=== PATIENT | male | born 1960 | race Caucasian/White ===

== ENCOUNTER 2016-04-28 11:44 | Inpatient (IN) | payer BC, OTHER ==
[~2016-04-28] VITALS: Ht 170.2 cm; Wt 85.9 kg
[2016-04-28] VITALS (22 sets, daily range): BP systolic 96–135; BP diastolic 54–110
[2016-04-28] MEDS ORDERED: IODIXANOL 320MG/ML 100ML BTL IV ONE (11:55)
[2016-04-28] MEDS ORDERED: LIDOCAINE 2%HCL (LOCAL ANESTH.) INJ 20ML MDV ONE (11:56)
[2016-04-28] MEDS ORDERED: ONDANSETRON HCL 4 MG/2 ML VIAL IV ONE (12:00)
[2016-04-28] MEDS ORDERED: HEPARIN 1,000 UNITS/ml 1ML VIAL IV ONE (12:00)
[2016-04-28] MEDS ORDERED: MORPHINE SULFATE 4 MG/ML SYRG IV ONE (12:00)
[2016-04-28] MEDS ORDERED: NITROGLYCERIN 0.4 MG SL TAB SL PRN ×2 (12:00→14:00)
[2016-04-28] MEDS ORDERED: ASPirin 81 mg TAB PO ONE (12:00)
[2016-04-28 12:21] LABS: Basophils # (auto) 0.1 uL; Basophils % (auto) 0.7 % (0.0-2.0); DEFINITIVE VIEW TRANSMISSION; Eosinophils # (auto) 0 uL; Eosinophils % (auto) 0.1 % (0.0-7.0); Hematocrit 52.5 % (41.0-53.0); Hemoglobin 17.3 g/dL (13.5-17.5); Lymphocytes # (auto) 2.1 uL; Lymphocytes % (auto) 11.2 % (10.0-50.0); Mean Corpuscular Hemoglobin 30.4 pg (28.0-32.0); Mean Corpuscular Volume 92.3 fL (80.0-100.0); Mean Platelet Volume 8.4 fL (7.4-10.4); Monocytes # (auto) 1.8 uL; Monocytes % (auto) 9.9 % (0.0-12.0); Neutrophils # (auto) 14.3 uL; Neutrophils % (auto) 78.1 % (37.0-80.0); Platelet Count (auto) 290 10^3/uL (140-450); Red Cell Distribution Width 14.5 % (11.6-16.0); White Blood Cell 18.3 10^3/uL (4.4-10.8)
[2016-04-28 12:27] LABS: Partial Thromboplastin Time 31.4 sec (22.64-33.71)
[2016-04-28 12:32] LABS: INR 1.29 (0.9-1.15); Prothrombin Time 13.3 sec (9.37-12.3)
[2016-04-28 12:36] LABS: Albumin 3.6 g/dL (3.4-5.0); BUN/Creatinine Ratio 7.1; Bilirubin, Total 1.1 mg/dL (0.2-1.0); Calcium 9.1 mg/dL (8.5-10.1); Magnesium 1.9 mg/dL (1.6-2.6); Potassium 4.2 mmol/L (3.5-5.1); Total Protein 7.8 g/dL (6.4-8.2)
[2016-04-28] MEDS ORDERED: ALBUTEROL SULF 2.5 MG/0.5ML(0.5%) NEB SOLN NEB PRN (14:00)
[2016-04-28] MEDS ORDERED: LORazepam 0.5 MG TAB PO PRN (14:00)
[2016-04-28] MEDS ORDERED: MORPHINE SULF INJ 2 MG/ML SYRINGE 1ML IV PRN ×2 (14:00)
[2016-04-28] MEDS ORDERED: PROMETHAZINE HCL 25 MG/ML 1ML IV PRN (14:00)
[2016-04-28] MEDS ORDERED: TEMAZEPAM 15 MG CAP PO PRN (14:00)
[2016-04-28] MEDS ORDERED: LACTULOSE 20Gm/30ML SOLN PO PRN (14:00)
[2016-04-28] MEDS ORDERED: ACETAMINOPHEN 500 MG TAB PO PRN (14:00)
[2016-04-28] MEDS ORDERED: IOHEXOL 350 MG/ML 100ML IJ ONE (14:09)
[2016-04-28] MEDS ORDERED: ENALAPRIL MALEATE 10 MG TAB PO SCH (14:15)
[2016-04-28] MEDS ORDERED: NITROGLYCERIN 0.2MG/HR TOPICAL PATCH TD SCH (14:15)
[2016-04-28] MEDS ORDERED: METOPROLOL TARTRATE 25 MG TAB PO SCH (14:15)
[2016-04-28] MEDS: SODIUM CHLORIDE 0.9% 1,000 ML IV SCH ×3 (15:03→19:40)
[2016-04-28] MEDS: PANTOPRAZOLE 40 MG TAB PO SCH (15:03)
[2016-04-28] MEDS: LEVOFLOXACIN 500MG 100 ML IV SCH (15:03)
[2016-04-28] MEDS ORDERED: HEPARIN SODIUM (PORCINE) 5000 UNITS/ML 1ML VIAL ONE (16:39)
[2016-04-28] MEDS ORDERED: FUROSEMIDE 40 MG/4 ML VIAL IV SCH (16:45)
[2016-04-28] MEDS ORDERED: NOREPINEPHRINE BITARTRATE 250 ML IV SCH (16:45)
[2016-04-28] MEDS ORDERED: ONDANSETRON HCL 40 MG/20 ML VIAL IV ONE (16:47)
[2016-04-28 17:19] LABS: B-Type Natriuretic Peptide 118.91 pg/mL (0-100); Temperature: 21.2 C (20.0-25.0)
[2016-04-28] MEDS ORDERED: HYDROmorphone HCL 2 MG/ML VL IV ONE (17:30)
[2016-04-28] MEDS ORDERED: HYDROmorphone HCL 2 MG/ML VL IV PRN (17:30)
[2016-04-28] MEDS ORDERED: methylPREDNISolone SOD SUCC 125 MG/2 ML VL IM ONE (17:30)
[2016-04-28] MEDS ORDERED: DOPamine 1600MCG/ML 250 ML IV SCH ×2 (17:45→19:45)
[2016-04-28] MEDS: ALBUTEROL SULF 2.5 MG/0.5ML(0.5%) NEB SOLN NEB SCH (19:17)
[2016-04-28] MEDS ORDERED: PROPRANOLOL HCL 20 MG TAB PO ONE (19:30)
[2016-04-28] MEDS: POTASSIUM CHL 20 Meq TABLET PO SCH (19:39)
[2016-04-28] MEDS ORDERED: DOPamine 1600MCG/ML 400MG/250ML PREMIX BAG IV ONE (19:39)
[2016-04-28] MEDS ORDERED: ATROPINE SULF 0.5 MG/5ML SYR IV ONE (19:39)
[2016-04-28] MEDS: INDOMETHACIN 25 MG CAP PO SCH (22:00)
[2016-04-28] MEDS ORDERED: CARVEDILOL 3.125 MG TAB PO SCH (22:00)
[2016-04-28] MEDS ORDERED: ATORVASTATIN 20 MG TAB PO SCH (22:00)
[2016-04-29] VITALS (79 sets, daily range): BP systolic 87–159; BP diastolic 42–90
[2016-04-29] MEDS: ALBUTEROL SULF 2.5 MG/0.5ML(0.5%) NEB SOLN NEB SCH ×4 (00:07→18:41)
[2016-04-29] MEDS: SODIUM CHLORIDE 0.9% 1,000 ML IV SCH ×2 (01:08)
[2016-04-29] MEDS: PROPRANOLOL HCL 20 MG TAB PO SCH ×3 (06:00→12:00)
[2016-04-29] MEDS: INDOMETHACIN 25 MG CAP PO SCH ×3 (06:00→21:59)
[2016-04-29 06:18] LABS: Basophils # (auto) 0.4 uL; Basophils % (auto) 2.2 % (0.0-2.0); DEFINITIVE VIEW TRANSMISSION; Eosinophils # (auto) 0 uL; Hematocrit 47.4 % (41.0-53.0); Hemoglobin 15.3 g/dL (13.5-17.5); Lymphocytes % (auto) 5.8 % (10.0-50.0); Mean Corpuscular Hemoglobin 30.5 pg (28.0-32.0); Mean Corpuscular Hgb Conc. 32.4 g/dL (32.0-36.0); Mean Corpuscular Volume 94.2 fL (80.0-100.0); Mean Platelet Volume 8.5 fL (7.4-10.4); Monocytes # (auto) 0.7 uL; Monocytes % (auto) 4.1 % (0.0-12.0); Neutrophils # (auto) 15.6 uL; Neutrophils % (auto) 87.9 % (37.0-80.0); Platelet Count (auto) 257 10^3/uL (140-450); Red Cell Distribution Width 14.6 % (11.6-16.0); White Blood Cell 17.7 10^3/uL (4.4-10.8)
[2016-04-29 06:44] LABS: Albumin 2.9 g/dL (3.4-5.0); BUN/Creatinine Ratio 8.3; Bilirubin, Total 0.8 mg/dL (0.2-1.0); Calcium 8.7 mg/dL (8.5-10.1); Potassium 4.2 mmol/L (3.5-5.1); Total Protein 7.2 g/dL (6.4-8.2)
[2016-04-29 08:01] LABS: B-Type Natriuretic Peptide 175.69 pg/mL (0-100); Temperature: 20.6 C (20.0-25.0)
[2016-04-29] MEDS ORDERED: ASPirin 81 mg TAB PO SCH ×2 (10:00)
[2016-04-29] MEDS: POTASSIUM CHL 20 Meq TABLET PO SCH (10:00)
[2016-04-29] MEDS: LEVOFLOXACIN 500MG 100 ML IV SCH (10:30)
[2016-04-29] MEDS: PANTOPRAZOLE 40 MG TAB PO SCH (10:30)
[2016-04-29] MEDS: HYDROcodone-ACET 5/325MG TAB PO PRN (17:05)
[2016-04-29] MEDS: COLCHICINE 0.6 MG TAB/CAP PO SCH (21:58)
[2016-04-30] VITALS (45 sets, daily range): BP systolic 92–124; BP diastolic 48–70
[2016-04-30] MEDS: ALBUTEROL SULF 2.5 MG/0.5ML(0.5%) NEB SOLN NEB SCH ×3 (00:36→11:56)
[2016-04-30] MEDS: HYDROcodone-ACET 5/325MG TAB PO PRN (02:03)
[2016-04-30 03:34] LABS: Hematocrit 42.7 % (41.0-53.0); Hemoglobin 13.8 g/dL (13.5-17.5); Mean Corpuscular Hemoglobin 30.5 pg (28.0-32.0); Mean Corpuscular Hgb Conc. 32.3 g/dL (32.0-36.0); Mean Corpuscular Volume 94.4 fL (80.0-100.0); Mean Platelet Volume 8.7 fL (7.4-10.4); Platelet Count (auto) 256 10^3/uL (140-450); Red Cell Distribution Width 14.1 % (11.6-16.0); SUSPECT VIEW TRANSMISSION; White Blood Cell 21.8 10^3/uL (4.4-10.8)
[2016-04-30 03:51] LABS: Metamyelocytes % 0; Myelocytes % 0; Promyelocytes % 0; Reactive Lymphocytes 0
[2016-04-30 03:56] LABS: Calcium 8.4 mg/dL (8.5-10.1); Magnesium 2.2 mg/dL (1.6-2.6)
[2016-04-30 04:00] LABS: BUN/Creatinine Ratio 17.3
[2016-04-30 04:35] LABS: Platelet Estimate Adequate; RBC Morphology Normal
[2016-04-30] MEDS: INDOMETHACIN 25 MG CAP PO SCH ×2 (05:22→15:08)
[2016-04-30] MEDS ORDERED: SODIUM CHLORIDE 0.9 % NEB SOLN 3ML NEB ONE (05:32)
[2016-04-30] MEDS: LEVOFLOXACIN 500MG 100 ML IV SCH (10:00)
[2016-04-30] MEDS: COLCHICINE 0.6 MG TAB/CAP PO SCH (11:36)
[2016-04-30] MEDS: PANTOPRAZOLE 40 MG TAB PO SCH (11:36)
[2016-04-30] MEDS: POTASSIUM CHL 20 Meq TABLET PO SCH (11:36)
[2016-04-30] MEDS ORDERED: LEVO500T3 PO (15:43)
[2016-04-30] MEDS ORDERED: IND25C PO (15:43)
[2016-04-30] MEDS ORDERED: ALBUAER3 IN (15:43)
[2016-04-30] MEDS ORDERED: COLC1TAB3 PO (16:07)
== END 2016-04-30 18:36 | disposition home health service (06) | DRG 314 ==
LOC: ER 11:48 → TELE 11:49 → TELE-E-ADS 16:13 → ICU WEST 17:55
PROVIDERS: ADMIT Internal Medicine; ATTEND Internal Medicine
DX: I30.9 Acute pericarditis, unspecified (principal); J18.9 Pneumonia, unspecified organism; D68.9 Coagulation defect, unspecified; I31.9 Disease of pericardium, unspecified; I51.7 Cardiomegaly; F17.210 Nicotine dependence, cigarettes, uncomplicated; G62.9 Polyneuropathy, unspecified
CPT/HCPCS: 36415; 71010; 71275; 80048; 80053; 80061; 82550; 82962; 83605; 83735; 83880; 84443; 84484; 85007; 85025; 85027; 85049; 85379; 85610; 85652; 85730; 86141; 86658; 86850; 86900; 86901; 87040; 87081; 93005; 93306; 94640; 96374; 96375; J0461; J1956; J2405; J3490; Q9967

== ENCOUNTER 2020-11-06 06:42 | Day surgery (SDC) | payer BC ==
[~2020-11-06] VITALS: Ht 170.2 cm; Wt 100.0 kg
[~2020-11-06 06:42] MED LIST: AMIO200T4 PO; METO25TA36 PO; RIVA20TA PO; TRAM50TA2 PO
[2020-11-06] MEDS ORDERED: LIDOCAINE VISCOUS 2% 15ML UD MT ONE (08:15)
[2020-11-06] MEDS ORDERED: MIDAZOLAM HCL 1MG/1ML-2 ML VIAL IV ONE (08:15)
[2020-11-06] MEDS ORDERED: fentaNYL CITRATE 100 MCG/2 ML VL IV ONE (08:15)
[2020-11-06] MEDS ORDERED: diphenhdrAMINE HCL 50 MG/1 ML VL IV ONE (08:15)
== END 2020-11-06 10:15 | disposition home or self-care (01) ==
LOC: CATH 06:42
PROVIDERS: ATTEND Internal Medicine
DX: I49.9 Cardiac arrhythmia, unspecified (principal); I48.11 Longstanding persistent atrial fibrillation; Z68.34 Body mass index [BMI] 34.0-34.9, adult; Z88.1 Allergy status to other antibiotic agents; Z98.890 Other specified postprocedural states; Z79.899 Other long term (current) drug therapy; Z20.822 Contact with and (suspected) exposure to COVID-19
CPT/HCPCS: 93005; 93312; J1200; J2250; J3010; J7030; U0003; 99152

== ENCOUNTER 2023-05-18 06:56 | Day surgery (SDC) | payer BC ==
[~2023-05-18] VITALS: Ht 170.2 cm; Wt 99.8 kg
[~2023-05-18 06:56] MED LIST changes: +AMIO200T13 PO; -AMIO200T4 PO; +TEMA30CA PO
[2023-05-18] MEDS: LIDOCAINE VISCOUS 2% 15ML UD PO ONE (08:00)
[2023-05-18] MEDS: fentaNYL CITRATE 100 MCG/2 ML VL IV ONE (08:00)
[2023-05-18] MEDS: MIDAZOLAM HCL 5 MG/ML-1ML VIAL IV ONE (08:00)
[2023-05-18] MEDS: MIDAZOLAM HCL 2MG/2ML 2ml VIAL (1mg/ml) ONE (08:09)
[2023-05-18] MEDS: diphenhdrAMINE HCL 50 MG/1 ML VL IV ONE (08:15)
[2023-05-18] MEDS: diphenhdrAMINE HCL 50 MG/1 ML VL ONE (08:17)
[2023-05-18] MEDS ORDERED: ASPI-543 PO (08:43)
== END 2023-05-18 09:32 | disposition home or self-care (01) ==
LOC: CATH 06:56
PROVIDERS: ATTEND Internal Medicine
DX: I48.19 Other persistent atrial fibrillation (principal); I08.3 Combined rheumatic disorders of mitral, aortic and tricuspid valves; Z88.2 Allergy status to sulfonamides; Z79.82 Long term (current) use of aspirin; Z87.891 Personal history of nicotine dependence; Z79.899 Other long term (current) drug therapy; Z98.890 Other specified postprocedural states
CPT/HCPCS: 93005; 93312; J1200; J2250; J3010; 99152

== ENCOUNTER 2023-08-03 10:14 | Day surgery (SDC) | payer BC ==
[~2023-08-03] VITALS: Ht 170.2 cm; Wt 95.3 kg
[~2023-08-03 10:14] MED LIST changes: -AMIO200T13 PO; +ASPI-543 PO
[2023-08-03] MEDS: LIDOCAINE VISCOUS 2% 15ML UD PO ONE (12:44)
[2023-08-03] MEDS: fentaNYL CITRATE 100 MCG/2 ML VL IV ONE (12:45)
[2023-08-03] MEDS: MIDAZOLAM HCL 2MG/2ML 2ml VIAL (1mg/ml) IV ONE (12:47)
[2023-08-03] MEDS: diphenhdrAMINE HCL 50 MG/1 ML VL IV ONE (12:53)
[2023-08-03 12:56] VITALS: BP 142/97; PULSE 65; RESP 14; O2SAT 90
[2023-08-03 13:03] VITALS: BP 128/76; PULSE 67; RESP 13; O2SAT 90
[2023-08-03 13:18] VITALS: BP 131/75; PULSE 67; RESP 12; O2SAT 98
[2023-08-03 13:33] VITALS: BP 128/75; PULSE 64; RESP 24; O2SAT 91
[2023-08-03 13:49] VITALS: BP 121/75; PULSE 66; RESP 18; O2SAT 92
[2023-08-03 14:03] VITALS: BP 125/76; PULSE 65; RESP 13; O2SAT 90
== END 2023-08-03 14:18 | disposition home or self-care (01) ==
LOC: CATH 10:14
PROVIDERS: ATTEND Internal Medicine
DX: I48.91 Unspecified atrial fibrillation (principal); I08.3 Combined rheumatic disorders of mitral, aortic and tricuspid valves
CPT/HCPCS: 93005; 93312; J1200; J2250; J3010; 99152